=== PATIENT | male | born 1945 | race Caucasian/White ===

== ENCOUNTER 2022-04-06 10:17 | Outpatient (CLI) | payer MEDICARE, SELFPAY ==
[2022-04-06 16:12] LABS: Albumin* 4.2 g/dL (3.3-5.0); Chloride* 106 mmol/L (96-114)
[2022-04-06 16:13] LABS: Potassium* 4.7 mmol/L (3.6-5.1); Sodium* 140 mmol/L (135-149)
[2022-04-06 16:15] LABS: Aspartate Amino Transferase* 22 U/L (12-35); Bilirubin Total* 0.9 mg/dL (0.1-1.5); Blood Urea Nitrogen* 17 mg/dL (7-30); Carbon Dioxide* 29 mmol/L (20-32); Cholesterol* 146 mg/dL (90-199); Creatinine* 0.9 mg/dL (0.5-1.5); Estimated Glomerular Filt Rate 88 ml/min; Glucose* 89 mg/dL (60-115); Total Protein* 6.5 g/dL (6.0-8.3)
[2022-04-06 16:16] LABS: Alanine Aminotransferase* 16 U/L (4-50); Alkaline Phosphatase* 65 U/L (40-150); Calcium* 9.4 mg/dL (8.4-10.6); HDL Cholesterol* 49 mg/dL (>=40); LDL Cholesterol Calculated 77 mg/dL (<100); Triglycerides* 101 mg/dL (40-149)
== END 2022-04-06 10:18 | disposition home or self-care (01) ==
PROVIDERS: PCP Physician Assistant Medical; Visit Provider Physician Assistant Medical
DX: Z00.00 Encounter for general adult medical examination without abnormal findings (principal); E78.5 Hyperlipidemia, unspecified; I10 Essential (primary) hypertension; Z12.5 Encounter for screening for malignant neoplasm of prostate
CPT/HCPCS: 80053; 80061; 84153

== ENCOUNTER 2023-03-15 13:06 | Outpatient (CLI) | payer MEDICARE, SELFPAY | END 2023-03-15 13:07 | disposition home or self-care (01) | PROVIDERS: PCP Physician Assistant Medical; Visit Provider Physician Assistant Medical | DX: I10 Essential (primary) hypertension (principal); E78.5 Hyperlipidemia, unspecified; I25.10 Atherosclerotic heart disease of native coronary artery without angina pectoris | CPT/HCPCS: 80053; 80061; G0103 ==

== ENCOUNTER 2024-06-13 09:57 | Outpatient (CLI) | payer MEDICARE, SELFPAY | END 2024-06-13 09:58 | disposition home or self-care (01) | LOC: NFLDREF 06-18 20:16 | PROVIDERS: PCP Physician Assistant Medical; Referring Provider Physician Assistant Medical; Visit Provider Physician Assistant Medical | DX: I10 Essential (primary) hypertension (principal); E78.2 Mixed hyperlipidemia; M1A.0720 Idiopathic chronic gout, left ankle and foot, without tophus (tophi); Z13.29 Encounter for screening for other suspected endocrine disorder; Z12.5 Encounter for screening for malignant neoplasm of prostate | CPT/HCPCS: 80053; 80061; 84443; G0103 ==